=== PATIENT | male | born 1995 | race Caucasian/White ===

== ENCOUNTER 2020-12-24 02:15 | Emergency (ER) | payer OTHER, SELFPAY ==
[2020-12-24 02:39] VITALS: BP 124/90; BP 126/65; PULSE 102; PULSE 84; RESP 16; O2SAT 97; BMI 23.7
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
[2020-12-24 03:27] LABS: Amphetamine Screen Urine Not Detected (Not Detect); Barbiturates, Urine Not Detected (Not Detect); Benzodiazepines Screen Urine Not Detected (Not Detect); Cannabinoid Screen Urine POSITIVE (Not Detect); Cocaine Screen Urine POSITIVE (Not Detect); Fentanyl, urine Not Detected (Not Detect); Opiate Screen Urine Not Detected (Not Detect); Phencyclidine Screen Urine Not Detected (Not Detect)
[2020-12-24 03:46] LABS: COVID-19 Test Negative (Negative); Ethanol 124 mg/dL; IDNOW Serial# 9DD0AD1C
[2020-12-24 08:15] VITALS: BP 128/65; PULSE 84; RESP 16; TEMP 36.8; O2SAT 97
--- NOTE | 2020-12-24 09:05 | PC.NURSE ---
pt denies any si/hi at this time. pt c/o corin foot/ankle pain. pt stated that he jumped off a porch 2 days before he came into the hosp. aware.
--- NOTE | 2020-12-24 09:18 | PC.NURSE ---
patricia (care team) is at bedside, pt aware of plan of care.
[2020-12-24 10:26] VITALS: BP 123/61; PULSE 93; RESP 17; TEMP 36.8; O2SAT 96
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
== END 2020-12-24 11:16 | disposition home or self-care (01) ==
PROVIDERS: Emergency Medicine; Emergency Provider Emergency Medicine Emergency Medical Services
DX: F10.129 Alcohol abuse with intoxication, unspecified (principal); R45.851 Suicidal ideations; Y90.9 Presence of alcohol in blood, level not specified; Z20.822 Contact with and (suspected) exposure to COVID-19; Z79.899 Other long term (current) drug therapy
CPT/HCPCS: 36415; 80307; 82077; 87635; 99284

== ENCOUNTER 2021-04-04 16:29 | Emergency (ER) | payer OTHER, SELFPAY ==
[2021-04-04 16:35] VITALS: BP 106/76; PULSE 86; RESP 18; TEMP 36.8; O2SAT 98; BMI 26.1
[2021-04-04 17:00] LABS: Appearance Urine HAZY; Color Urine YELLOW; Glucose Urine UA NEG (NEG); Leukocyte Esterase Urine NEG (NEG); Nitrite Urine NEG (NEG); Specific Gravity - Urine 1.025 (1.005-1.025); UACC Culture Trigger NO; Urine Blood TRACE (NEG); Urine Ketones NEG (NEG); Urine Protein NEG (NEG-TRACE)
[2021-04-04 17:34] LABS: UACC CULT YES
[2021-04-04 17:43] LABS: Amorphous Sediment Urine 3+ /LPF
[2021-04-04 17:44] LABS: WBC Urine 30-49 /HPF (0-4)
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
[2021-04-04] MEDS: Azithromycin 500 MG TABLET 1000 MG PO (19:32)
[2021-04-04] MEDS: cefTRIAXone sodium 500 MG, Lidocaine HCl 1 % MPF 1 ML IM (19:34)
[2021-04-05 01:29] LABS: CT PCR NOT DETECTED (Not Detect.); NG PCR DETECTED (Not Detect.)
== END 2021-04-04 19:46 | disposition home or self-care (01) ==
PROVIDERS: Physician Assistant; Emergency Provider Emergency Medicine
DX: N34.2 Other urethritis (principal)
CPT/HCPCS: 81001; 87086; 87491; 87591; 96372; 99283; 99284; J0696